=== PATIENT | female | born 1985 | race Caucasian/White ===

== ENCOUNTER 2017-02-16 07:06 | Emergency (ER) | payer OTHER ==
[~2017-02-16] VITALS: Ht 134.6 cm; Wt 63.5 kg
--- NOTE | 2017-02-16 22:14 | EKG ---
[facility] [address] [facility] [facility] [place] [address] Signed Normal sinus rhythm Rightward axis Borderline ECG No previous ECGs available Confirmed by JONG MONROY MD ([id number] on 02/16/2017 10:14:19 PM Electronically Signed By: JONG MONROY MD 02/16/17 2214 PATIENT NAME: LETICIA OSWALD Electrocardiogram DATE OF : 85 PHYSICIAN: JONG MONROY MD REPORT #: [id number] REPORT IS CONFIDENTIAL AND NOT TO BE RELEASED WITHOUT AUTHORIZATION
== END 2017-02-16 09:28 | disposition home or self-care (01) ==
LOC: ED 07:06
DX: R07.9 Chest pain, unspecified (principal)
CPT/HCPCS: 71010; 80053; 81001; 84484; 84703; 85025; 85610; 85730; 93005; 93010; 99284